=== PATIENT | female | born 1955 | race Caucasian/White ===

== ENCOUNTER 2016-04-11 11:11 | Outpatient (CLI) | payer MEDICAID | END 2016-04-11 11:12 | disposition home or self-care (01) | DX: I63.412 Cerebral infarction due to embolism of left middle cerebral artery (principal); T88.7XXA Unspecified adverse effect of drug or medicament, initial encounter; E55.9 Vitamin D deficiency, unspecified ==

== ENCOUNTER 2016-07-27 10:16 | Outpatient (CLI) | payer MEDICAID ==
[2016-07-27 18:04] LABS: INR 0.9 (0.8-1.2); PT - PROTHROMBIN TIME 10.6 secs (9.9-12.6)
[2016-07-27 18:06] LABS: BASOPHILS # (AUTO) 0.1 10^3/uL (0.0-0.1); BASOPHILS % (AUTO) 1.2 %; EOSINOPHILS # (AUTO) 0.2 10^3/uL (0.0-0.7); EOSINOPHILS % (AUTO) 2.4 %; HGB - HEMOGLOBIN 13.3 g/dL (12.0-16.0); LYMPHOCYTES # (AUTO) 1.4 10^3/uL (1.5-3.5); LYMPHOCYTES % (AUTO) 16.6 %; MEAN CORPUSCULAR HEMOGLOBIN 30.5 pg (27.0-31.0); MEAN CORPUSCULAR HGB CONC 33.2 g/dL (32.0-36.0); MEAN CORPUSCULAR VOLUME 91.9 fL (81.0-99.0); MEAN PLATELET VOLUME 8.9 fL (7.9-10.8); MONOCYTES # (AUTO) 0.7 10^3/uL (0.0-1.0); NEUTROPHILS # (AUTO) 6.2 10^3/uL (1.5-6.6); NEUTROPHILS % (AUTO) 71.8 %; NUCLEATED RED BLOOD CELLS AUTO 0.2 /100WBC; RED BLOOD COUNT 4.35 10^6/uL (4.20-5.40); RED CELL DISTRIBUTION WIDTH 13.5 % (12.0-15.0); UNCORRECTED WHITE BLOOD COUNT 8.6 x10^3/uL; WHITE BLOOD COUNT 8.6 x10^3/uL (4.8-10.8)
[2016-07-27 18:28] LABS: ALBUMIN/GLOBULIN RATIO 1.4 (1.0-2.2); BILIRUBIN,TOTAL 0.7 mg/dL (0.2-1.0); CALCIUM 9.2 mg/dL (8.5-10.3); CREATININE 0.6 mg/dL (0.4-1.0); POTASSIUM 3.9 mmol/L (3.5-5.0); TOTAL PROTEIN 7.1 g/dL (6.7-8.2)
[2016-07-27 18:29] LABS: CHOL/HDL RATIO 3.4 (<4.4); CHOLESTEROL 227 mg/dL; HDL CHOLESTEROL 67 mg/dL; LDL/HDL RATIO 1.9 (<4.4); TRIGLYCERIDES 165 mg/dL; VLDL CHOLESTEROL 33 mg/dL
== END 2016-07-27 10:17 | disposition home or self-care (01) ==
LOC: LAB.F 10:16
PROVIDERS: ATTEND Internal Medicine
DX: Z93.3 Colostomy status (principal)
CPT/HCPCS: 36415; 80053; 80061; 85025; 85610

== ENCOUNTER 2017-10-01 08:41 | Outpatient (CLI) | payer MEDICAID ==
[2017-10-01 11:47] LABS: HGB - HEMOGLOBIN 13.7 g/dL (12.0-16.0); MEAN CORPUSCULAR HEMOGLOBIN 27.5 pg (27.0-31.0); MEAN CORPUSCULAR HGB CONC 32.8 g/dL (32.0-36.0); MEAN CORPUSCULAR VOLUME 83.7 fL (81.0-99.0); MEAN PLATELET VOLUME 8.9 fL (7.9-10.8); RED BLOOD COUNT 4.99 10^6/uL (4.20-5.40); RED CELL DISTRIBUTION WIDTH 15.1 % (12.0-15.0); WHITE BLOOD COUNT 10.4 x10^3/uL (4.8-10.8)
[2017-10-01 11:57] LABS: ALBUMIN 4.5 g/dL (3.2-5.5); ALBUMIN/GLOBULIN RATIO 1.2 (1.0-2.2); BILIRUBIN,TOTAL 0.9 mg/dL (0.2-1.0); CALCIUM 9.4 mg/dL (8.5-10.3); CREATININE 0.7 mg/dL (0.4-1.0); TOTAL PROTEIN 8.4 g/dL (6.7-8.2)
[2017-10-02 13:58] LABS: HEPATITIS C ANTIBODY NON-REACTIVE (NON-REACTIVE)
== END 2017-10-01 08:42 | disposition home or self-care (01) ==
LOC: LAB.F 08:41
PROVIDERS: ATTEND Internal Medicine
DX: Z98.890 Other specified postprocedural states (principal); Z90.49 Acquired absence of other specified parts of digestive tract; R10.9 Unspecified abdominal pain; Z11.59 Encounter for screening for other viral diseases
CPT/HCPCS: 36415; 80053; 85027; 86803

== ENCOUNTER 2018-09-04 11:37 | Observation (INO) | payer MEDICAID ==
--- NOTE | 2018-09-04 12:09 | CT Report ---
Reason: aphasia and right weakness this morning Procedure Date: 09/04/2018 Accession Number: [id number] / [id number] Procedure: CT - Head W/O Stroke Protocol CPT Code: FULL RESULT: EXAM: CT HEAD EXAM DATE: 09/04/2018 11:52 AM. CLINICAL HISTORY: Aphasia and right weakness this morning. COMPARISON: HEAD W/O 10/18/2015 4:45 PM. TECHNIQUE: Multiaxial CT images were obtained from the foramen magnum to the vertex. Reformats: Sagittal and coronal. IV contrast: None. In accordance with CT protocol optimization, one or more of the following dose reduction techniques were utilized for this exam: automated exposure control, adjustment of mA and/or KV based on patient size, or use of iterative reconstructive technique. FINDINGS: Parenchyma: Left temporal lobe encephalomalacia from interval infarct. Diffuse chronic microangiopathic white matter changes are evident. Extraaxial Spaces: Normal for age. No subdural or epidural collections identified. Ventricles: Asymmetric dilatation of left lateral ventricle due to left temporal lobe encephalomalacia. No ventricular effacement. Sinuses and orbits: Imaged paranasal sinuses, orbits, and mastoids show no significant abnormality. Bones: No evidence of fracture or calvarial defect. Other: None. IMPRESSION: 1. No evidence for intracranial hemorrhage or large recent infarct. 2. Left temporal lobe encephalomalacia from interval infarct since 10/18/2015. 3. Generalized age-related cortical atrophic changes. Consider MRI as a more sensitive modality for acute and acute on chronic infarcts. [facility] The critical test notification system was initiated by Dr. Dilshad Guardado at 11:58 AM on 09/04/2018. The above critical test findings were discussed with Brandt Mcmahon by Dr. Dilshad Guardado at 12:01 PM on 09/04/2018.
[2018-09-04] MEDS ORDERED: SODIUM CHLORIDE 0.9% 1,000 ML IV ONE ×2 (12:34→14:44)
[2018-09-04] MEDS ORDERED: IOVERSOL 320 100 ML VIAL IVP ONE (12:37)
[2018-09-04 12:54] LABS: BILIRUBIN,URINE NEGATIVE (NEGATIVE); CLARITY,URINE CLEAR (CLEAR); GLUCOSE, URINE (UA) NEGATIVE (NEGATIVE); KETONES,URINE (UA) NEGATIVE (NEGATIVE); LEUKOCYTE ESTERASE, URINE NEGATIVE (NEGATIVE); NITRITE,URINE NEGATIVE (NEGATIVE); OCCULT BLOOD,URINE TRACE-INTA (NEGATIVE); PROTEIN,URINE NEGATIVE (NEGATIVE); UROBILINOGEN,URINE 0.2 (NORMAL) E.U./dL (NORMAL)
--- NOTE | 2018-09-04 12:54 | ED Physician Documentation ---
PD HPI FOCAL NEURO - Stated complaint Stated Complaint: STROKE SYMPTOMS - Chief complaint Chief Complaint: Neuro - History obtained from History obtained from: Patient, Friend - History of Present Illness Timing - onset: Today (about 8:30 am (4 hours ago).) Timing - duration: Hours Timing - details: Abrupt onset, Still present (improving now in the ER.) Severity of deficit: Moderate Weakness: Arm, Leg, Right, Other (also trouble speaking words/sentences significantly.) Associated symptoms: No: Headache, Nausea / vomiting Contributing factors: positive: Anticoagulated (Plavix). negative: Vascular dz, Atrial fibrillation Baseline status: positive: A&OX3, ambulatory, indep (Her baseline prior to today is some mild weakness and balance problems with the right leg and arm as well as occasional word aphasia from her prior stroke in 2016. Her symptoms today were similar to the prior stroke symptoms but significantly worse than her baseline. She had been feeling well otherwise without any recent dehydration cold or flu symptoms nausea vomiting or head cold stuff.), Cane Similar symptoms before: Diagnosis (Similar symptoms with CVA 2016 but had improved to just mild baseline symptoms currently.) Recently seen: Not recently seen Review of Systems Constitutional: denies: Fever, Chills Nose: denies: Rhinorrhea / runny nose, Congestion Throat: denies: Sore throat Cardiac: denies: Chest pain / pressure, Palpitations Respiratory: denies: Cough GI: denies: Nausea, Vomiting, Diarrhea, Bloody / black stool : denies: Dysuria, Frequency Neurologic: reports: Focal weakness (right arm and leg), Difficulty speaking. denies: Generalized weakness Endocrine: denies: Weight loss Immunocompromised: denies: Immunocompromised PD PAST MEDICAL HISTORY - Past Medical History Cardiovascular: None Respiratory: None Neuro: CVA Endocrine/Autoimmune: None GI: None, Diverticulitis : None HEENT: None Psych: None Musculoskeletal: None Derm: None - Past Surgical History Past Surgical History: Yes General: Bowel surgery /CALL OR CONTACT CENTRE OPERATOR: Hysterectomy HEENT: Tonsil/Adenoidectomy - Present Medications Home Medications: Ambulatory Orders Medication Instructions Recorded Confirmed Aspirin [Adult Low Dose Aspirin EC] 81 mg PO DAILY #30 tablet. 10/19/15 Atorvastatin [Lipitor] 40 mg PO QPM #30 tablet 10/19/15 Clopidogrel [Plavix] 75 mg PO DAILY #30 tablet 09/13/16 Nicotine 14 mg Patch [Nicoderm] 1 patch TOP DAILY #30 patch 10/19/15 - Allergies Allergies/Adverse Reactions: Allergies Allergy/AdvReac Type Severity Reaction Status Date / Time ibuprofen AdvReac Unknown Verified 09/04/18 13:42 - Social History Does the pt smoke?: No Smoking Status: Never smoker Does the pt drink ETOH?: Yes Does the pt have substance abuse?: No - Immunizations Immunizations: TDAP >10years/unknown PD ED PE NORMAL - Vitals Vital signs reviewed: Yes - General General: Alert and oriented X 3 (Having difficulties with expression and can only say partial sentences. She is able to answer yes no well so I asked more pointed questions initially.), No acute distress, Well developed/nourished - HEENT HEENT: Pharynx benign - Neck Neck: Supple, no meningeal sign, No adenopathy - Cardiac Cardiac: RRR, No murmur - Respiratory Respiratory: Clear bilaterally - Abdomen Abdomen: Soft, Non tender - Back Back: No CVA TTP - Derm Derm: Normal color, Warm and dry - Extremities Extremities: No deformity, No tenderness to palpate, No edema, No calf tenderness / cord - Neuro Neuro: Alert and oriented X 3. 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, Normal speech Eye Opening: Spontaneous Motor: Obeys Commands Verbal: Oriented GCS Score: 15 NIHSS - Level of Consciousness Level of consciousness: (0) Alert, Keenly responsive LOC Questions: (0) Answers both Q's correct LOC Commands: (0) Performs both correctly - Gaze Best Gaze: (0) Normal - Visual Visual: (0) No loss - Facial Palsy Facial Palsy: (1) Minor paralysis - Motor Arms (both separate) Motor Arm (right): (1) Drift Motor Arm (left): (0) No drift - Motor Legs (both separate) Motor Leg (right): (1) Drift Motor Leg (left): (0) No drift - Limb Ataxia Limb Ataxia: (0) Absent - Sensory Sensory: (0) Normal - Best Language Best Language: (2) Severe aphasia - Dysarthria Dysarthria: (0) Normal - Extinction and Inattention (formally neg Extinction and inattention: (0) No abnormality - Total Score/Results Total Score/Result: 5 Results - Vitals Vitals: Vital Signs - 24 hr 0709/04/18 09/04/18 12:33 12:42 13:44 Temperature 36.5 C 36.7 C Heart Rate 89 71 88 Respiratory 30 H 20 24 Rate Blood Pressure 152/96 H 177/110 H 167/104 H O2 Saturation 98 99 99 09/04/18 13:58 Temperature Heart Rate 96 Respiratory 17 Rate Blood Pressure 153/111 H O2 Saturation 99 Oxygen O2 Source Room air - Labs Labs: Laboratory Tests 09/04/18 09/04/18 09/04/18 12:50 13:20 13:20 WBC 16.5 H RBC 5.08 Hgb 14.7 Hct 45.6 MCV 89.8 MCH 28.9 MCHC 32.2 RDW 13.7 Plt Count 302 MPV 9.8 Neut # (Auto) 14.4 H Lymph # (Auto) 1.2 L [place] # (Auto) 0.7 Eos # (Auto) 0.0 Baso # (Auto) 0.1 Absolute Nucleated RBC 0.00 Nucleated RBC % 0.0 PT INR APTT Sodium 138 Potassium 3.6 Chloride 104 Carbon Dioxide 22 Anion Gap 12.0 BUN 10 Creatinine 0.5 Estimated GFR (MDRD) 125 Glucose 98 Calcium 9.2 Magnesium 1.9 Total Bilirubin 0.7 AST 18 ALT 16 Alkaline Phosphatase 62 Total Protein 7.5 Albumin 4.1 Globulin 3.4 Albumin/Globulin Ratio 1.2 Lipase 26 Urine Color YELLOW Urine Clarity CLEAR Urine pH 7.0 Ur Specific [place] <=1.005 Urine Protein NEGATIVE Urine Glucose (UA) NEGATIVE Urine Ketones NEGATIVE Urine Occult Blood TRACE-INTA Urine Nitrite NEGATIVE Urine Bilirubin NEGATIVE Urine Urobilinogen 0.2 (NORMAL) Ur Leukocyte Esterase NEGATIVE Ur Microscopic Review NOT INDICATED 09/04/18 13:20 WBC RBC Hgb Hct MCV MCH MCHC RDW Plt Count MPV Neut # (Auto) Lymph # (Auto) [place] # (Auto) Eos # (Auto) Baso # (Auto) Absolute Nucleated RBC Nucleated RBC % PT 13.4 H INR 1.2 APTT 22.9 L Sodium Potassium Chloride Carbon Dioxide Anion Gap BUN Creatinine Estimated GFR (MDRD) Glucose Calcium Magnesium Total Bilirubin AST ALT Alkaline Phosphatase Total Protein Albumin Globulin Albumin/Globulin Ratio Lipase Urine Color Urine Clarity Urine pH Ur Specific [place] Urine Protein Urine Glucose (UA) Urine Ketones Urine Occult Blood Urine Nitrite Urine Bilirubin Urine Urobilinogen Ur Leukocyte Esterase Ur Microscopic Review - Rads (name of study) head CT Radiology: Prelim report reviewed, Discussed with rads (prior CVA; no acute findings), See rad report head/neck angio Radiology: Prelim report reviewed, Discussed with rads (There is stenosis at the M1 level of the left MCA. He did not compared to prior studies. He said there is some flow showing distally so reconstituting or having a trickle flow. Some tight stenoses up higher as well.), EMP read contemporaneously (I looked at the MRI results from 2016 and it talked about a similar stenotic lesion around that level making it sound like a chronic finding.), See rad report PD MEDICAL DECISION MAKING - ED course Complexity details: re-evaluated patient (She is having improving symptoms while here but not quite to baseline. Unclear whether she had a flow-limiting condition that caused exacerbation of symptoms of her prior MCA stroke. This compared to a new extension. On current testing there is no acute intervention per [facility] neurology. Suggest further evaluation for extension of her prior stroke versus other metabolic or vascular problems that exacerbated her prior infarct area.), considered differential, d/w patient, d/w gis consultant ([facility] neurology regarding stroke care who said there would be no lytic or medication interventions based on the timeframe, improving symptoms, Plavix prescription. He denies any endovascular intervention based on probably no significant change on the left MCA stenosis compared to prior MRI and her resolving symptoms. Suggested adding aspirin daily for a month.) Departure - Departure Disposition: ED Place in Observation Clinical Impression: Expressive aphasia, Right sided weakness, Status post cerebrovascular accident Condition: Stable
--- NOTE | 2018-09-04 13:07 | CT Report ---
Reason: aphasia and right weakness this morning Procedure Date: 09/04/2018 Accession Number: [id number] / [id number] Procedure: CT - ANGIO HEAD W/WO CPT Code: FULL RESULT: EXAM: CT ANGIOGRAM HEAD. EXAM DATE: 09/04/2018 12:10 PM CLINICAL HISTORY: Right side weakness. Aphasia. History of previous bilateral cerebral infarcts. COMPARISON: No prior CTA of the head. TECHNIQUE: CT Angiogram: Using a multidetector scanner, high-resolution axial images were acquired from the skull base through vertex following rapid infusion of intravenous contrast. Reformats: Multiplanar MIP reformats were reconstructed. Nascet criteria used for stenosis measurement. IV Contrast: 80 mL Optiray 320. In accordance with CT protocol optimization, one or more of the following dose reduction techniques were utilized for this exam: automated exposure control, adjustment of mA and/or KV based on patient size, or use of iterative reconstructive technique. FINDINGS: Multifocal age-indeterminate proximal left MCA arterial occlusive disease. The left MCA M1 segment may be duplicated and at the origins of these segments, there appears to be severe focal luminal stenosis versus occlusion. Additional severe stenosis versus occlusion of the nondominant superior proximal left MCA trunk. There is a third order peripheral branch of the dominant inferior proximal MCA trunk that appears occluded. These findings of proximal arterial occlusive disease of the left middle cerebral artery are age-indeterminate and may be from recent or remote thromboembolic disease. No other evidence for intracranial large artery flow-limiting stenosis or occlusion. Prominent chronic atherosclerosis of the distal ICA segments at the skull base. No evidence for an aneurysm or vertebrobasilar insufficiency. IMPRESSION: Multifocal/multisegment age-indeterminate arterial occlusive disease of proximal left MCA branches. This may be from age-indeterminate thromboembolic disease. These findings do not preclude the possibility of a new or small ischemic infarct for which brain MRI is more sensitive. The call report notification system was initiated by Dr. Ottoniel Motta at 12:43 PM on 09/04/2018. The above call report findings were discussed with Brandt Mcmahon by Dr. Ottoniel Motta at 12:51 PM on 09/04/2018. [facility]
--- NOTE | 2018-09-04 13:11 | CT Report ---
Reason: aphasia and right weakness this morning Procedure Date: 09/04/2018 Accession Number: [id number] / [id number] Procedure: CT - ANGIO NECK W CPT Code: FULL RESULT: EXAM: CT ANGIOGRAM NECK EXAM DATE: 09/04/2018 12:10 PM. CLINICAL HISTORY: Aphasia and right weakness this morning. History of previous bilateral cerebral infarcts. COMPARISON: No prior neck CTA. TECHNIQUE: Routine axial helical imaging was performed from the skull base through the aortic arch. Reconstructions: Routine multiplanar 3D MIP reconstructions. IV Contrast: Optiray 320 80ML. Evaluation of arterial stenosis is based on a NASCET method of measurement. In accordance with CT protocol optimization, one or more of the following dose reduction techniques were utilized for this exam: automated exposure control, adjustment of mA and/or KV based on patient size, or use of iterative reconstructive technique. FINDINGS: No flow-limiting stenosis of the proximal left subclavian artery adjacent to which there is focal atherosclerotic calcification of the aortic arch contiguous with the anterior aspect of the left subclavian artery origin. Patent origins of the left common carotid artery and innominate artery. The proximal right subclavian artery and distal innominate are obscured by beam hardening streak artifact. Incomplete visualization of the proximal right common carotid artery also obscured by streak artifact. Atherosclerosis with partially calcified plaque at the right cervical carotid bifurcation. The associated luminal stenosis appears mild and does not appear hemodynamically significant. Mild atherosclerosis of the left cervical carotid bifurcation is also present, but there is no evidence for acute abnormality or flow-limiting stenosis. Nonvisualization of the proximal aspect of the left vertebral artery V1 segment secondary to motion artifact in the low neck/upper chest. In the mid and upper neck where the left vertebral artery can be visualized, the appearance is unremarkable. Streak artifact obscures the origin of the right cervical vertebral artery. Where visualized more distally in the neck, this vessel shows no acute abnormality or flow-limiting stenosis. No evidence for intracranial or vertebrobasilar insufficiency. Intracranially, there appears to be severe near occlusive stenosis at the origin of the left MCA. This is also associated with mild origin stenosis of the left ADEEL A1 segment. There appear to be two dominant artery branches arising at the expected location of the left M1 origin. The more inferior of these is dominant. A third order left MCA branch arising from this proximally dominant trunk appears to be markedly attenuated or occluded which may represent additional downstream arterial occlusive disease potentially from thromboembolus. The more superior branch artery arising at the expected location of the left M1 origin which is severely stenotic or occluded at its origin reconstitutes within about 3-4 mm, but then about 12 mm from this shows an additional approximately 4 mm long segment of severe stenosis/near occlusion, distal to which the vessel then again reconstitutes more distally. Probable infundibulum at the origin of the left posterior communicating artery. Well-developed patent right posterior communicating artery. No evidence for acute intracranial or vertebrobasilar insufficiency. Moderate to marked atherosclerotic calcifications of the cavernous and paraclinoid ICA segments. No other evidence of acute or chronic large artery occlusive disease intracranially. IMPRESSION: 1. Multifocal age-indeterminate arterial occlusive disease and stenosis of multiple proximal left MCA segments including artery branches as they arise from the left supraclinoid ICA. 2. Limited evaluation of the vertebral and carotid arteries in the low neck. 3. As far as visualized, the cervical vertebral and carotid arteries are grossly patent without demonstrated focal flow-limiting stenosis. These findings do not preclude the possibility of small or acute ischemic infarct for which a brain MRI is more sensitive. [facility] The call report notification system was initiated by Dr. Ottoniel Motta at 12:43 PM on 09/04/2018. The above call report findings were discussed with Brandt Mcmahon by Dr. Ottoniel Motta at 12:51 PM on 09/04/2018.
[2018-09-04 13:31] LABS: BASOPHILS # (AUTO) 0.1 10^3/uL (0.0-0.1); BASOPHILS % (AUTO) 0.5 %; EOSINOPHILS % (AUTO) 0.2 %; HGB - HEMOGLOBIN 14.7 g/dL (12.0-16.0); LYMPHOCYTES # (AUTO) 1.2 10^3/uL (1.5-3.5); MEAN CORPUSCULAR HEMOGLOBIN 28.9 pg (27.0-31.0); MEAN CORPUSCULAR HGB CONC 32.2 g/dL (32.0-36.0); MEAN CORPUSCULAR VOLUME 89.8 fL (81.0-99.0); MEAN PLATELET VOLUME 9.8 fL (7.9-10.8); MONOCYTES # (AUTO) 0.7 10^3/uL (0.0-1.0); NEUTROPHILS # (AUTO) 14.4 10^3/uL (1.5-6.6); NEUTROPHILS % (AUTO) 87.7 %; PLT - PLATELET COUNT 302 10^3/uL (130-450); RED BLOOD COUNT 5.08 10^6/uL (4.20-5.40); RED CELL DISTRIBUTION WIDTH 13.7 % (12.0-15.0); WHITE BLOOD COUNT 16.5 x10^3/uL (4.8-10.8)
[2018-09-04 13:39] LABS: INR 1.2 (0.8-1.2); PT - PROTHROMBIN TIME 13.4 secs (9.9-12.6)
[2018-09-04 13:45] LABS: ALBUMIN 4.1 g/dL (3.2-5.5); ALBUMIN/GLOBULIN RATIO 1.2 (1.0-2.2); BILIRUBIN,TOTAL 0.7 mg/dL (0.2-1.0); CALCIUM 9.2 mg/dL (8.5-10.3); CREATININE 0.5 mg/dL (0.4-1.0); MAGNESIUM 1.9 mg/dL (1.7-2.8); TOTAL PROTEIN 7.5 g/dL (6.7-8.2)
[2018-09-04 13:46] LABS: PARTIAL THROMBOPLASTIN TIME 22.9 secs (24.9-33.3)
[2018-09-04] MEDS ORDERED: ASPIRIN CHEW 81 MG TABLET PO STA (13:56)
[2018-09-04] MEDS ORDERED: LORazepam 2 MG/ML VIAL IVP STA (14:44)
[2018-09-04] MEDS ORDERED: diphenhydrAMINE INJ 50 MG/ML VIAL IVP STA (14:48)
[2018-09-04] MEDS ORDERED: SODIUM CHLORIDE FLUSH 0.9% 10 ML SYRINGE IVP PRN (15:03)
[2018-09-04] MEDS ORDERED: ONDANSETRON 4 MG/2 ML VIAL IVP PRN (15:03)
[2018-09-04] MEDS ORDERED: CLOPIDOGREL 75 MG TABLET PO STA (15:06)
--- NOTE | 2018-09-04 15:24 | HISTORY & PHYSICAL EXAMINATION ---
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 Her symptoms today were similar to the prior stroke symptoms but significantly worse than her baseline. Now all her weakness, speech status returns on her baseline, facial droop is resolved, she has no more acute focal neurological deficits now " nothing I can feel is abnormal." CT of head reveals no evidence for intracranial hemorrhage or large recent infarct, left termporal lobe encephalomalacia from interval infarct since 2016. CTA of head reveals multiplefocal/multisegment age-indeterminate arterial occlusive disease of proximal left MCA branches. This may be from age- indeterminate thromboembolic disease. [place] neurologist was consulted by ER provider for regarding stroke care. The neurologist stated there would be no lytic or medication interventions based on the timeframe, improving symptoms, Plavix prescription. Also neurologist did not recommend any endovascular intervention based on image study which reveals no significant change on the left MCA stenosis compared to prior MRI plus pt's resolved symptoms, but suggested adding aspirin daily for a month, followup neurologist. pt denies fever, chill, cough, shortness of breath, chest pain, headache, abdominal, nausea, vomiting, dysuria, hematouria, vision change, " nothing I can feel is abnormal." In Lab test on ER, Pt had elevated WBC, UA analysis reveals normal. Pt is afebrile. Pt had elevated BP at 153/111. pt initially decline to stay hospital. I reported to Dr. Dean this condition, then Dr. Guzman told pt change her mind and want to stay in the hospital. pt is admitted in observation unit for TIA. History - Past Medical History Cardiovascular: reports: None Respiratory: reports: None Neuro: reports: CVA Endocrine/Autoimmune: reports: None GI: reports: None, Diverticulitis : reports: None HEENT: reports: None Psych: reports: None Musculoskeletal: reports: None Derm: reports: None MRSA Hx?: Yes - Past Surgical History General: reports: Bowel surgery /INCIDENT RESPONSE CONSULTANT: reports: Hysterectomy HEENT: reports: Tonsil/Adenoidectomy - Family & Social History Family History Comment/Other: Pt is living at [facility] with her roommate. she is not working and not much else is known. Social History Notes: for tobacco use, pt current smoke every day, less than 10 cigarettes perday. For alcohol, occasional. she denies drug use. Meds/Allgy - Home Medications Home Medications: Ambulatory Orders Medication Instructions Recorded Confirmed Aspirin [Adult Low Dose Aspirin EC] 81 mg PO DAILY #30 tablet. 10/19/15 Atorvastatin [Lipitor] 40 mg PO QPM #30 tablet 10/19/15 Clopidogrel [Plavix] 75 mg PO DAILY #30 tablet 10/19/15 Nicotine 14 mg Patch [Nicoderm] 1 patch TOP DAILY #30 patch 10/19/15 - Allergies Allergies/Adverse Reactions: Allergies Allergy/AdvReac Type Severity Reaction Status Date / Time ibuprofen AdvReac Unknown Verified 09/04/18 13:42 Review of Systems - Constitutional Constitutional: denies: Fatigue, Fever, Chills, Malaise, Weakness, Poor appetite, Diaphoresis, Night sweats - Eyes Eyes: denies: Pain, Irritation, Amaurosis, Blurred vision, Spots in vision, Field loss, Vision loss, Dipolpia - Ears, Nose & Throat Ears, Nose & Throat: denies: Ear pain, Hearing loss, Hearing aids, Tinnitus, Vertigo, Nasal pain, Nasal discharge, Nosebleeds, Nasal obstruction, Nasal congestion, Dentures, Sore throat, Hoarseness, Mouth lesions, Bleeding gums - Cardiovascular Cariovascular: denies: Irregular heart rate, Palpitations, Chest pain, Edema, L ightheadedness, Syncope, Exertional dyspnea, Decr. exercise tolerance - Respiratory Respiratory: denies: Cough, Sputum production, Wheezing, Snoring, Hemoptysis, Orthopnea, SOB at rest, SOB with exertion, Apnea, Stridor, Pleuritic pain - Gastrointestinal Gastrointestinal: denies: Abdominal pain, Abdominal distention, Constipation, Diarrhea, Change in bowel habits, Rectal bleeding, Black stools, Bloody stools, Nausea, Vomiting, Coffee grounds emesis, Reflux/heartburn - Genitourinary Genitourinary: denies: Dysuria, Frequency, Urgency, Hematuria, Incontinence, Flank pain, Nocturia, Urethral discharge - Musculoskeletal Musculoskeletal: denies: Muscle pain, Back pain, Muscle aches, Stiffness, Limited range of motion, Muscle weakness, Gout, Joint pain - Integumentary Integumentary: denies: Rash, Pruritis, Lesions, Dryness, Lumps, Acne, Pigment changes, Nail changes - Neurological Neurological: reports: Focal weakness, Pre-existing deficit, Slurred speech. d enies: General weakness, Headache, Dizziness, Numbness, Memory problems, Abnormal gait, Seizures, Incoordination - Psychiatric Psychiatric: denies: Depression, Anxiety, Suicidal, Delusions, Hallucinations, Homicidal - Endocrine Endocrine: denies: Polyuria, Polydypsia, Polyphagia, Intolerance to cold - Hematologic/Lymphatic Hematologic/Lymphatic: denies: Anemia, Bruising, Petechiae, Blood clots, Lymphadenopathy, Bleeding tendencies Prior Level of Functionality: independent Exam - Vital Signs Reviewed Vital Signs: Yes Vital Signs: Vital Signs x48h Temp Pulse Resp BP Pulse Ox 09/04/18 13:58 96 17 153/111 H 99 09/04/18 13:44 36.7 C 88 24 167/104 H 99 09/04/18 12:42 71 20 177/110 H 99 09/04/18 12:33 36.5 C 89 30 H 152/96 H 98 - Physical Exam General Appearance: positive: No acute distress, Alert. negative: Lethargic Eyes Bilateral: positive: Normal inspection, PERRL, No lid inflammation, Conjunctivae nml ENT: positive: ENT inspection nml, Pharynx nml, No signs of dehydration. negative: Purulent nasal drainage, Pharyngeal erythema, Oral lesions Neck: positive: Nml inspection, Thyroid nml, No JVD, Trachea midline. negative: Thyromegaly, Lymphadenopathy (R), Lymphadenopathy (L), Stiff neck, Swelling/bruising, Tracheal deviation Respiratory: positive: Chest non-tender, No respiratory distress, Breath sounds nml. negative: Wheezes, Rales, Rhonchi Cardiovascular: positive: Regular rate & rhythm, No murmur, No gallop. negative: Irregularly irregular, Extrasystoles, Tachycardia, Bradycardia, JVD present, Systolic murmur, Diastolic murmur Peripheral Pulses: positive: 2+ Abdomen: positive: Non-tender, No organomegaly, Nml bowel sounds, No distention. negative: Tenderness, Guarding, Rebound Back: positive: Nml inspection. negative: CVA tenderness (R), CVA tenderness (L) Skin: positive: Color nml, No rash, Warm, Dry. negative: Cyanosis, Diaphoresis, Pallor Extremities: positive: Non-tender, Nml appearance. negative: Calf tenderness, Joint swelling, Freda's sign/cords Neurologic/Psychiatric: positive: Oriented x3, Sensation nml, Weakness, Slurred/abnml speech. negative: Motor nml, Sensory loss, Facial droop Sepsis Event Note (H) - Evaluation Current Stage of Sepsis: Ruled out Conclusion/Plan - Problem List (1) TIA (transient ischemic attack) Conclusion/Plan: pt report all her transient focal neurologist deficits including right facial droop, worsening right side weakness, worsening speech were resolved. CTA of brain reveals multiplefocal/multisegment age-indeterminate arterial occlusive disease of proximal left MCA branches. Neurologist in [place] was consulted by ER provider, suggest add Aspirin for one month to see pt's response, then follow neurologist, plus home Plavix for pt, no further endovascular intervention for pt now. Aspirin 325 mg daily, plus Plavix 75 mg daily. EKG reveals is SR, no afib ECHO ordered check lipid panel reconcile pt's lipitor advise pt quit tobacco smoking tele and vital monitor PT/OT order, pt has hx of Stroke. 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 reconcile home Plavix and add Aspirin control pt's blood pressure. PT/OT and nurse support (3) Ileostomy in place Conclusion/Plan: stable, nurse support (4) HTN (hypertension) Conclusion/Plan: pt has elevated BP at ER, but pt has no home BP meds. order hydralazine PRN continue vital monitor (5) Lymphocytosis Conclusion/Plan: pt has elevated WBC to 16. UA is negative. unknown etiology. it can be pt's distress response from TIA. continue lab monitor, CXR is pending. - Lab Results Fish Bones: 09/04/18 13:20 09/04/18 13:20 Core Measures - Anticipated LOS I expect patient to be DC'd or transferred within 96 hours.: Yes - DVT/VTE - Prophylaxis VTE/DVT Device ordered at admit?: Yes VTE/DVT Prophylaxis med ordered at admit?: Yes
[2018-09-04] MEDS ORDERED: ACETAMINOPHEN 325 MG TABLET PO PRN (15:45)
[2018-09-04] MEDS ORDERED: hydrALAZINE INJ 20 MG/ML VIAL IVP PRN (16:16)
[2018-09-04] MEDS: SODIUM CHLORIDE FLUSH 0.9% 10 ML SYRINGE IVP SCH (16:21)
--- NOTE | 2018-09-04 16:53 | XRAY Report ---
Reason: SOB Procedure Date: 09/04/2018 Accession Number: [id number] / [id number] Procedure: XR - Chest 1 View X-Ray CPT Code: 87359 FULL RESULT: EXAM: CHEST RADIOGRAPHY EXAM DATE: 09/04/2018 04:36 PM. CLINICAL HISTORY: Shortness of breath. COMPARISON: CHEST 1 VIEW 10/18/2015 9:07 PM. TECHNIQUE: 1 view. FINDINGS: Lungs/Pleura: No focal opacities evident. No pleural effusion. No pneumothorax. Mediastinum: Within exam limitations, the cardiomediastinal contour is normal. Other: None. IMPRESSION: Normal single view chest. RADIA
[2018-09-04] MEDS: FAMOTIDINE 20 MG TABLET PO SCH (20:06)
[2018-09-04] MEDS ORDERED: ATORVASTATIN 40 MG TABLET PO SCH (21:00)
--- NOTE | 2018-09-04 23:57 | MRI Report ---
Reason: TIA Procedure Date: 09/04/2018 Accession Number: [id number] / [id number] Procedure: MRI - Brain W/O CPT Code: FULL RESULT: EXAM: MRI BRAIN WITHOUT CONTRAST EXAM DATE: 09/04/2018 09:41 PM. CLINICAL HISTORY: TIA. COMPARISON: BRAIN W/O 10/19/2015 8:21 AM NECK ANGIO 09/04/2018 12:02 PM. TECHNIQUE: Multiplanar, multisequence T1-weighted and fluid-sensitive MR sequences of the brain were performed. Sequences optimized for routine evaluation. Other: None. IV Contrast: None. FINDINGS: Parenchyma/Dura: No evidence of acute infarct. There are small remote right frontal, left frontal, and left parietal peripheral infarcts. There are several areas of increased T2 signal involving the white matter of the cerebral hemispheres. Ventricles/Cisterns: Mild dilatation of lateral ventricles. No mass-effect. No midline shift. No abnormal extra-axial fluid collection or hemorrhage. Orbits: Symmetric and unremarkable. Vasculature: Increased T2 flair signal involving left MCA branches suggestive of slow flow. Sinuses: No acute appearing sinus disease. Bones: No focal pathologic appearing marrow signal changes. Other: None. IMPRESSION: 1. No evidence of acute infarct. 2. Remote bilateral frontal and left parietal infarcts. 3. Severe left MCA stenosis. RADIA
[2018-09-05] MEDS: SODIUM CHLORIDE FLUSH 0.9% 10 ML SYRINGE IVP SCH ×2 (00:36→09:14)
[2018-09-05 05:20] LABS: BASOPHILS # (AUTO) 0.1 10^3/uL (0.0-0.1); BASOPHILS % (AUTO) 0.7 %; EOSINOPHILS # (AUTO) 0.1 10^3/uL (0.0-0.7); LYMPHOCYTES # (AUTO) 1.7 10^3/uL (1.5-3.5); LYMPHOCYTES % (AUTO) 17.4 %; MEAN CORPUSCULAR HEMOGLOBIN 29.6 pg (27.0-31.0); MEAN CORPUSCULAR HGB CONC 32.1 g/dL (32.0-36.0); MEAN CORPUSCULAR VOLUME 92.3 fL (81.0-99.0); MEAN PLATELET VOLUME 10.1 fL (7.9-10.8); MONOCYTES # (AUTO) 0.8 10^3/uL (0.0-1.0); NEUTROPHILS # (AUTO) 7.2 10^3/uL (1.5-6.6); NEUTROPHILS % (AUTO) 72.4 %; PLT - PLATELET COUNT 269 10^3/uL (130-450); RED BLOOD COUNT 4.39 10^6/uL (4.20-5.40)
[2018-09-05 05:25] LABS: CALCIUM 8.9 mg/dL (8.5-10.3); CREATININE 0.5 mg/dL (0.4-1.0)
[2018-09-05 05:34] LABS: CHOLESTEROL 162 mg/dL; HDL CHOLESTEROL 41 mg/dL; LDL CHOLESTEROL,CALCULATED 98 mg/dL; LDL/HDL RATIO 2.4 (<4.4); VLDL CHOLESTEROL 23 mg/dL
[2018-09-05] MEDS ORDERED: ASPIRIN 325 MG TABLET PO SCH (08:00)
[2018-09-05] MEDS ORDERED: NICOTINE 14 MG PATCH TOP SCH (09:00)
[2018-09-05] MEDS ORDERED: ENOXAPARIN 40 MG/0.4 ML SYRINGE SUBQ SCH (09:00)
[2018-09-05] MEDS ORDERED: CLOPIDOGREL 75 MG TABLET PO SCH (09:00)
[2018-09-05] MEDS ORDERED: POLYETHYLENE GLYCOL 3350 17 GM PACKET PO SCH (09:00)
[2018-09-05] MEDS: FAMOTIDINE 20 MG TABLET PO SCH (09:13)
--- NOTE | 2018-09-05 09:56 | Discharge Plan ---
Discharge Plan Problem Reviewed?: Yes Disposition: Home, Self Care Condition: Good Prescriptions: Niacin 250 mg PO DAILY #30 tablet Diet: Cardiac Activity Restrictions: Activity as Tolerated Shower Restrictions: No Assistance Devices: Walker Weight Bearing: Full Weight Instruction Topics: Clopidogrel Bisulfate Oral tablet, Aspirin ASA oral tablets Health Concerns: TIA (transient ischemic attack) Left MCA (middle cerebral artery) stenosis (narrowing) Word finding difficulties Plan of Treatment: Continue on Plavix and add Niacin daily Change positions slowly to prevent dizziness Please follow up with your PCP for a referral to be evaluated for the carotid artery stenosis to see if surgical intervention would be helpful in your case Care Goals: Avoid hospital stays Prevent stroke Improve symptoms Referral for possible surgical intervention for your carotid artery stenosis Assessment: Patient expressed understanding of her most recent results, including that her head MRI was negative for a stroke Additional Instructions or Follow Up instructions: A physical therapy evaluation is pending No Smoking: If you smoke, Please STOP! Call for help.
--- NOTE | 2018-09-05 10:18 | DISCHARGE SUMMARY ---
Discharge Summary Admit Date: 09/04/18 Discharge Date: 09/05/18 Discharging Provider: SUSANNE Butts Primary Care Provider: Kasey Zhang Code Status: Do Not Attempt Resuscitation Condition at Discharge: Good Discharge Disposition: 01 Home, Self Care - DIAGNOSES Admission Diagnoses: TIA (transient ischemic attack) History of CVA (cerebrovascular accident) Ileostomy in place HTN (hypertension) Lymphocytosis Discharge Diagnoses with Status of Each Condition: TIA (transient ischemic attack)- new on this admission, symptoms now resolved, stable, continue on Niacin with having an allergy to statins History of CVA (cerebrovascular accident)- History of bilateral frontal and left parietal strokes Ileostomy in place- chronic,stable HTN (hypertension)- chronic, stable Lymphocytosis- resolved - HPI History of Present Illness: HPI per Shubham Nagy SUPERVISOR ANODIZING: Cindi Costello is a 62-year old female with a past medical history of CVA with mild right sided in 2016 and remaining of right side mild weakness plus mild difficult to pickup words to speak, 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 Her symptoms today were similar to the prior stroke symptoms but significantly worse than her baseline. Now all her weakness, speech status returns on her baseline, facial droop is resolved, she has no more acute focal neurological deficits now " nothing I can feel is abnormal." CT of head reveals no evidence for intracranial hemorrhage or large recent infarct, left termporal lobe encephalomalacia from interval infarct since 2016. CTA of head reveals multiplefocal/multisegment age-indeterminate arterial occlusive disease of proximal left MCA branches. This may be from age- indeterminate thromboembolic disease. [place] neurologist was consulted by ER provider for regarding stroke care. The neurologist stated there would be no lytic or medication interventions based on the timeframe, improving symptoms, Plavix prescription. Also neurologist did not recommend any endovascular intervention based on image study which reveals no significant change on the left MCA stenosis compared to prior MRI plus pt's resolved symptoms, but suggested adding aspirin daily for a month, followup neurologist. pt denies fever, chill, cough, shortness of breath, chest pain, headache, abdominal, nausea, vomiting, dysuria, hematouria, vision change, " nothing I can feel is abnormal." In Lab test on ER, Pt had elevated WBC, UA analysis reveals normal. Pt is afebrile. Pt had elevated BP at 153/111. pt initially decline to stay hospital. I reported to Dr. Dean this condition, then Dr. Guzman told pt change her mind and want to stay in the hospital. pt is admitted in observation unit for TIA. - HOSPITAL COURSE Hospital Course: The patient had a resolution of her presenting symptoms and was discharged in stable condition. - ALLERGIES Allergies/Adverse Reactions: Allergies Allergy/AdvReac Type Severity Reaction Status Date / Time atorvastatin AdvReac Severe muscle Verified 09/04/18 17:45 issue ibuprofen AdvReac Unknown Verified 09/04/18 13:42 - MEDICATIONS Home Medications: Ambulatory Orders Medication Instructions Recorded Confirmed Clopidogrel [Plavix] 75 mg PO DAILY #30 tablet 10/19/15 09/04/18 Niacin 250 mg PO DAILY #30 tablet 09/05/18 - PHYSICAL EXAM AT DISCHARGE General Appearance: positive: No acute distress, Alert Eyes Bilateral: positive: PERRL ENT: positive: Pharynx nml, No signs of dehydration Neck: positive: Thyroid nml, No JVD Respiratory: positive: Chest non-tender, No respiratory distress, Breath sounds nml Cardiovascular: positive: No gallop, Systolic murmur, Decreased pulse(s) Peripheral Pulses: positive: 2+ Abdomen: positive: Non-tender, Nml bowel sounds Back: positive: Nml inspection Skin: positive: No rash, Warm, Dry Extremities: positive: Non-tender, Full ROM, Nml appearance, Pedal edema Neurologic/Psychiatric: positive: Oriented x3, CN's nml (2-12), Motor nml, Weakness, Depressed mood/affect Reflexes: Bicep (R): 3+, Bicep (L): 3+ - LABS Result Diagrams: 09/05/18 04:40 09/05/18 04:40 - DIAGNOSTIC IMAGING Diagnostic Imaging Results: Final report reviewed Diagnostic Imaging Results Comments: EXAM: CT HEAD EXAM DATE: 09/04/2018 11:52 AM IMPRESSION: 1. No evidence for intracranial hemorrhage or large recent infarct. 2. Left temporal lobe encephalomalacia from interval infarct since 10/18/2015. 3. Generalized age-related cortical atrophic changes. EXAM: CT ANGIOGRAM HEAD EXAM DATE: 09/04/2018 12:10 PM IMPRESSION: Multifocal/multisegment age-indeterminate arterial occlusive disease of proximal left MCA branches. This may be from age-indeterminate thromboemboli c disease. These findings do not preclude the possibility of a new or small ischemic infarct for which brain MRI is more sensitive. EXAM: CT ANGIOGRAM NECK EXAM DATE: 09/04/2018 12:10 PM. IMPRESSION: 1. Multifocal age-indeterminate arterial occlusive disease and stenosis of multiple proximal left MCA segments including artery branches as they arise from the left supraclinoid ICA. 2. Limited evaluation of the vertebral and carotid arteries in the low neck. 3. As far as visualized, the cervical vertebral and carotid arteries are grossly patent without demonstrated focal flow-limiting stenosis. These findings do not preclude the possibility of small or acute ischemic infarct for which a brain MRI is more sensitive. EXAM: CHEST RADIOGRAPHY EXAM DATE: 09/04/2018 04:36 PM IMPRESSION: Normal single view chest. EXAM: MRI BRAIN WITHOUT CONTRAST EXAM DATE: 09/04/2018 09:41 PM. IMPRESSION: 1. No evidence of acute infarct. 2. Remote bilateral frontal and left parietal infarcts. 3. Severe left MCA stenosis. - SEPSIS Current Stage of Sepsis: Ruled out - FOLLOW UP Follow Up: Disposition: Home Prescriptions: Niacin 250 mg PO DAILY #30 tablet Instruction Topics: Clopidogrel Bisulfate Oral tablet, Aspirin ASA oral tablets Health Concerns: TIA (transient ischemic attack), Left MCA (middle cerebral artery) stenosis (narrowing), Word finding difficulties Plan of Treatment: Continue on Plavix and add Niacin daily, Change positions slowly to prevent dizziness Please follow up with your PCP for a referral to be evaluated for the carotid artery stenosis to see if surgical intervention would be helpful in your case Care Goals: Avoid hospital stays Prevent stroke Improve symptoms Referral for possible surgical intervention for your carotid artery stenosis Assessment: Patient expressed understanding of her most recent results, including that her head MRI was negative for a stroke - TIME SPENT Time Spent in Discharge (Minutes): 55
[2018-09-05 12:54] VITALS: BP 151/98
[2018-09-06] MEDS ORDERED: CLOPIDOGREL 75 MG TABLET PO SCH (09:00)
== END 2018-09-05 11:15 | disposition home or self-care (01) ==
LOC: ED 11:37 → MS2 15:03
PROVIDERS: ADMIT Nurse Practitioner Gerontology; ATTEND Nurse Practitioner
DX: G45.9 Transient cerebral ischemic attack, unspecified (principal); I69.320 Aphasia following cerebral infarction; I69.351 Hemiplegia and hemiparesis following cerebral infarction affecting right dominant side; I10 Essential (primary) hypertension; D72.820 Lymphocytosis (symptomatic); I66.02 Occlusion and stenosis of left middle cerebral artery; Z93.2 Ileostomy status; Z87.891 Personal history of nicotine dependence; Z87.19 Personal history of other diseases of the digestive system; Z90.49 Acquired absence of other specified parts of digestive tract
CPT/HCPCS: 36415; 70450; 70496; 70498; 70551; 71045; 80048; 80053; 80061; 81003; 83690; 83735; 85025; 85610; 85730; 93005; 93306; 96361; 96374; 96375; 97161; 99284; 99285; A9270; G0378; J1200; J2060; Q9967; 81001; 83721

== ENCOUNTER 2019-09-30 15:52 | Emergency (ER) | payer MEDICAID ==
[2019-09-30] MEDS ORDERED: HYDROmorphone 1 MG/ML CARPUJECT IM STA (16:36)
--- NOTE | 2019-09-30 16:37 | ED Physician Documentation ---
History of Present Illness - Stated complaint Stated Complaint: RT ARM INJ - Chief complaint Chief Complaint: Ext Problem - Additonal information Additional information: 63-year-old female presents to the emergency department for acute right wrist pain and injury. She reports that she was walking this afternoon with her cane descending the steps when she tripped falling forward on outstretched hands. This was a mechanical fall. She denies syncope. She had no loss of consciousness did not strike her head or neck. She does take Plavix every day. 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 She is right-handed. She has obvious swelling deformity and ecchymosis over the mid distal wrist. Review of Systems Constitutional: denies: Fever, Chills Nose: denies: Rhinorrhea / runny nose, Congestion, Epistaxis Throat: denies: Dental pain / toothache, Oral lesions / sores, Sore throat Cardiac: denies: Chest pain / pressure, Palpitations Respiratory: denies: Dyspnea, Cough GI: denies: Abdominal Pain, Abdominal Swelling, Nausea : denies: Dysuria, Frequency Skin: denies: Rash, Lesions Musculoskeletal: reports: Extremity pain, Extremity swelling. denies: Neck pain Neurologic: reports: Focal weakness (base line right leg). denies: Generalized weakness, Near syncope, Syncope, Seizure, Headache, Head injury, LOC PD PAST MEDICAL HISTORY - Past Medical History Past Medical History: Yes Cardiovascular: None Respiratory: None Neuro: CVA Endocrine/Autoimmune: None GI: Diverticulitis RESIDENTIAL FEE APPRAISER: None : None HEENT: None Psych: None Musculoskeletal: None Derm: None - Past Surgical History Past Surgical History: Yes General: Bowel surgery /RESIDENTIAL FEE APPRAISER: Hysterectomy HEENT: Tonsil/Adenoidectomy - Present Medications Home Medications: Ambulatory Orders Medication Instructions Recorded Confirmed Clopidogrel [Plavix] 75 mg PO DAILY #30 tablet 10/19/15 09/04/18 Niacin 250 mg PO DAILY #30 tablet 09/05/18 Hydrocodone/Acetaminophen [Strandquist 1 each PO TID PRN #15 tablet 09/30/19 5-325 Tablet] - Allergies Allergies/Adverse Reactions: Allergies Allergy/AdvReac Type Severity Reaction Status Date / Time atorvastatin AdvReac Severe muscle Verified 09/04/18 17:45 issue ibuprofen AdvReac Unknown Verified 09/04/18 13:42 - Social History Does the pt smoke?: No Smoking Status: Former smoker Does the pt drink ETOH?: No Does the pt have substance abuse?: Yes Substance Use and Type: Marijuana - Immunizations Immunizations are current?: Yes Immunizations: TDAP >10years/unknown PD ED PE EXPANDED - General General: Alert, No acute distress, In Pain - Neck Neck: Supple w/out meningeal sx, Other (full ROM in all planes). No: No tenderness, Soft tissue TTP, Bony TTP - Cardiac Cardiac: Regular Rate, Regular Rhythm, Radial strong equal (bilaterally), Femoral strong equal, Pedal strong equal, Cap refill < 2 sec - Respiratory Respiratory: Clear to ausultation ariana. No: Distress, Labored - Extremities Extremities: Deformity, Tenderness (Swelling ecchymosis with mild deformity right mid distal wrist. Limited range of motion secondary to pain. Brisk cap refill distally. 2+ radial ulnar pulse.), Right elbow (2 sonometer hematoma distal to the lateral olecranon of the right elbow. Normal flexion extension of elbow against resistance.) Results - Vitals Vitals: Vital Signs - 24 hr 09/30/19 09/30/19 09/30/19 15:59 16:16 19:03 Temperature 36.4 C L 36.8 C 36.3 C L Heart Rate 114 H 109 H 108 H Respiratory 18 18 18 Rate Blood Pressure 150/104 H 151/107 H 134/85 H O2 Saturation 96 96 95 Oxygen O2 Source Room air - Rads (name of study) right wrist Radiology: Final report received elbow right Radiology: Final report received (No fractures or dislocations no suspicious bony lesions) PD MEDICAL DECISION MAKING - ED course Complexity details: reviewed results, considered differential, d/w patient, d/w senior environmental consultant (Dr. Tavares ([facility])) ED course: 63-year-old female presents to the emergency room for evaluation of acute right wrist pain after a FOOSH fall this afternoon. X-ray does show that she is got a comminuted displaced intra-articular fracture of the right radius. There is some angulation and I have consulted on the phone with Dr. Tavares on-call for orthopedics Departure - Departure Disposition: 01 Home, Self Care Clinical Impression: Closed right radial fracture Qualifiers: Encounter type: initial encounter Radius location: distal Fracture morphology: other intra-articular Qualified Code(s): S52.571A - Other intraarticular fracture of lower end of right radius, initial encounter for closed fracture Condition: Stable Record reviewed to determine appropriate education?: Yes Instructions: ED Fx Forearm Radius Ulna No Redu Requ Follow-Up: [facility] [Provider Group] - Within 1 week Prescriptions: Hydrocodone/Acetaminophen [Strandquist 5-325 Tablet] 1 each PO TID PRN #15 tablet PRN Reason: Pain Comments: Cindi the x-ray does show that you have broken your distal right radius. We have placed this in a temporary splint. It should remain clean and dry. I do want you to call the orthopedics department tomorrow for a follow-up. I have prescribed Vicodin for pain. Use this sparingly as it may make you dizzy and more prone to falls. If at any point you have fevers, hand or finger numbness or tingling or feel that the splint is too tight please return to the emergency department for a repeat evaluation
[2019-09-30] MEDS ORDERED: ONDANSETRON ODT 4 MG TABLET TL STA (17:21)
--- NOTE | 2019-09-30 17:53 | XRAY Report ---
PROCEDURE: Wrist 3 View RT INDICATIONS: injury TECHNIQUE: 3 views of the wrist were acquired. COMPARISON: None available FINDINGS: Bones: There is a comminuted, impacted fracture of the distal radius, with dorsal angulation. There is intra-articular involvement seen. No radiocarpal dislocation can be seen. No associated fracture of the distal ulna can be seen. Focal degenerative change is seen involving the carpometacarpal joint, with milder degenerative husain es seen elsewhere. Soft tissues: Soft tissue swelling is seen. IMPRESSION: There is an impacted, comminuted, intra-articular fracture of the distal radius, with dorsal angulati on. Reviewed by: Mehul Radford MD on 09/30/2019 4:51 PM MIKEY Approved by: Mehul Radford MD on 09/30/2019 4:51 PM MIKEY Station ID: [id number]
--- NOTE | 2019-09-30 17:54 | XRAY Report ---
PROCEDURE: Elbow 2 View RT INDICATIONS: fall; contusion TECHNIQUE: 2 views of the elbow were acquired. COMPARISON: Correlation is made with the accompanying wrist plain films. FINDINGS: Bones: No fractures or dislocations. No suspicious bony lesions. Soft tissues: No large elbow joint effusion. No suspicious soft tissue calcifications. IMPRESSION: No significant plain film abnormality is seen. Reviewed by: Mehul Radford MD on 09/30/2019 4:52 PM AKDT Approved by: Mehul Radford MD on 09/30/2019 4:52 PM AKDT Station ID: [id number]
[2019-09-30 19:03] VITALS: BP 134/85
== END 2019-09-30 19:29 | disposition home or self-care (01) ==
LOC: ED 15:52
DX: S52.571A Other intraarticular fracture of lower end of right radius, initial encounter for closed fracture (principal); W10.9XXA Fall (on) (from) unspecified stairs and steps, initial encounter; Y93.01 Activity, walking, marching and hiking
CPT/HCPCS: 73070; 73110; 96372; 99283; 99284; J1170; Q0162

== ENCOUNTER 2019-10-09 15:57 | Outpatient (CLI) | payer MEDICAID ==
--- NOTE | 2019-10-09 16:00 | XRAY Report ---
PROCEDURE: Wrist 3 View RT INDICATIONS: RIGHT WRIST FRACTURE TECHNIQUE: 3 views of the wrist were acquired. COMPARISON: 09/30/2019 FINDINGS: Bones: There is an air splint along the medial aspect of the lateral right wrist. Moderately displace d and comminuted distal radius fracture with extension to the articular surface is redemonstrated. Th ere is dorsal displacement to a similar degree. No suspicious bony lesions. Soft tissues: No suspicious soft tissue calcifications. IMPRESSION: 1. No change in position to distal radial fracture post splint placement. Reviewed by: Flor Thomas MD on 10/09/2019 3:59 PM PDT Approved by: Flor Thomas MD on 10/09/2019 3:59 PM PDT Station ID: [id number]
== END 2019-10-09 23:59 | disposition home or self-care (01) ==
LOC: DI.WCP 15:57
PROVIDERS: ATTEND Orthopaedic Surgery
DX: S52.501D Unspecified fracture of the lower end of right radius, subsequent encounter for closed fracture with routine healing (principal)

== ENCOUNTER 2019-11-14 15:44 | Outpatient (CLI) | payer MEDICAID ==
--- NOTE | 2019-11-14 15:46 | XRAY Report ---
PROCEDURE: Wrist 3 View RT INDICATIONS: COLLES FX OF R RADIUS TECHNIQUE: 3 views of the wrist were acquired. COMPARISON: 09/30/2019 FINDINGS: Bones: There is an old some healing at impacted distal radial shaft fracture site. Shortening of dist al radial shaft is seen. Alignment of right wrist is anatomic. No new fracture or dislocation. No michelle picious bony lesions. Scaphoid view: Scaphoid is grossly intact. Soft tissues: No suspicious soft tissue calcifications. IMPRESSION: Healing impacted distal radial fracture with anatomic wrist alignment. No fracture or dislocation. Reviewed by: Kt Hoskins MD on 11/14/2019 3:44 PM PDT Approved by: Kt Hoskins MD on 11/14/2019 3:44 PM PDT Station ID: [id number]
== END 2019-11-14 23:59 | disposition home or self-care (01) ==
LOC: DI.WCP 15:44
PROVIDERS: ATTEND Orthopaedic Surgery
DX: S52.531A Colles' fracture of right radius, initial encounter for closed fracture (principal)

== ENCOUNTER 2020-04-23 08:35 | Outpatient (CLI) | payer MEDICARE, MEDICAID ==
[2020-04-23 15:15] LABS: BASOPHILS # (AUTO) 0.1 10^3/uL (0.0-0.1); BASOPHILS % (AUTO) 0.7 %; EOSINOPHILS # (AUTO) 0.3 10^3/uL (0.0-0.7); EOSINOPHILS % (AUTO) 2.1 %; HCT - HEMATOCRIT 46.7 % (37.0-47.0); HGB - HEMOGLOBIN 14.6 g/dL (12.0-16.0); LYMPHOCYTES # (AUTO) 2.1 10^3/uL (1.5-3.5); LYMPHOCYTES % (AUTO) 17.8 %; MEAN CORPUSCULAR HEMOGLOBIN 29.7 pg (27.0-31.0); MEAN CORPUSCULAR HGB CONC 31.3 g/dL (32.0-36.0); MEAN CORPUSCULAR VOLUME 94.9 fL (81.0-99.0); MEAN PLATELET VOLUME 9.9 fL (7.9-10.8); MONOCYTES # (AUTO) 0.7 10^3/uL (0.0-1.0); MONOCYTES % (AUTO) 5.7 %; NEUTROPHILS # (AUTO) 8.6 10^3/uL (1.5-6.6); NEUTROPHILS % (AUTO) 73.3 %; PLT - PLATELET COUNT 438 10^3/uL (130-450); RED BLOOD COUNT 4.92 10^6/uL (4.20-5.40); RED CELL DISTRIBUTION WIDTH 13.4 % (12.0-15.0); WHITE BLOOD COUNT 11.7 x10^3/uL (4.8-10.8)
[2020-04-23 15:53] LABS: ALBUMIN 4.4 g/dL (3.2-5.5); ALBUMIN/GLOBULIN RATIO 1.3 (1.0-2.2); ALKALINE PHOSPHATASE 63 IU/L (42-121); ALT ALANINE AMINOTRANSFERASE 23 IU/L (10-60); AST ASPARTATE AMINOTRANSFERASE 23 IU/L (10-42); BILIRUBIN,TOTAL 0.8 mg/dL (0.2-1.0); BUN - BLOOD UREA NITROGEN 11 mg/dL (6-20); CALCIUM 9.2 mg/dL (8.5-10.3); CARBON DIOXIDE - CO2 27 mmol/L (21-32); CHLORIDE 101 mmol/L (101-111); CHOL/HDL RATIO 4.2 (<4.4); CHOLESTEROL 222 mg/dL; CREATININE 0.6 mg/dL (0.4-1.0); GFR - MDRD 100 (>89); GLUCOSE 92 mg/dL (70-100); HDL CHOLESTEROL 53 mg/dL; LDL CHOLESTEROL,CALCULATED 130 mg/dL; LDL/HDL RATIO 2.5 (<4.4); POTASSIUM 3.7 mmol/L (3.5-5.0); SODIUM 139 mmol/L (135-145); TOTAL PROTEIN 7.8 g/dL (6.7-8.2); TRIGLYCERIDES 196 mg/dL; VLDL CHOLESTEROL 39 mg/dL
== END 2020-04-23 08:36 | disposition home or self-care (01) ==
LOC: LAB.S 08:35
PROVIDERS: ATTEND Nurse Practitioner Family
DX: I69.351 Hemiplegia and hemiparesis following cerebral infarction affecting right dominant side (principal); I69.30 Unspecified sequelae of cerebral infarction
CPT/HCPCS: 36415; 80053; 80061; 83721; 85025

== ENCOUNTER 2022-02-09 07:00 | Outpatient (CLI) | payer MEDICARE, MEDICAID ==
[2022-02-09 14:25] LABS: BASOPHILS # (AUTO) 0.1 10^3/uL (0.0-0.1); BASOPHILS % (AUTO) 0.8 %; EOSINOPHILS # (AUTO) 0.2 10^3/uL (0.0-0.7); EOSINOPHILS % (AUTO) 1.9 %; HGB - HEMOGLOBIN 14.4 g/dL (12.0-16.0); LYMPHOCYTES # (AUTO) 2.4 10^3/uL (1.5-3.5); LYMPHOCYTES % (AUTO) 24.3 %; MEAN CORPUSCULAR HEMOGLOBIN 29.5 pg (27.0-31.0); MEAN CORPUSCULAR VOLUME 92.2 fL (81.0-99.0); MEAN PLATELET VOLUME 10.2 fL (7.9-10.8); MONOCYTES # (AUTO) 0.6 10^3/uL (0.0-1.0); MONOCYTES % (AUTO) 6.3 %; NEUTROPHILS # (AUTO) 6.5 10^3/uL (1.5-6.6); NEUTROPHILS % (AUTO) 66.5 %; PLT - PLATELET COUNT 382 10^3/uL (130-450); RED BLOOD COUNT 4.88 10^6/uL (4.20-5.40); RED CELL DISTRIBUTION WIDTH 13.2 % (12.0-15.0); WHITE BLOOD COUNT 9.7 x10^3/uL (4.8-10.8)
[2022-02-09 15:16] LABS: ALBUMIN/GLOBULIN RATIO 1.1 (1.0-2.2); ALKALINE PHOSPHATASE 60 IU/L (42-121); ALT ALANINE AMINOTRANSFERASE 18 IU/L (10-60); AST ASPARTATE AMINOTRANSFERASE 22 IU/L (10-42); BILIRUBIN,TOTAL 0.5 mg/dL (0.2-1.0); BUN - BLOOD UREA NITROGEN 11 mg/dL (6-20); CALCIUM 9.5 mg/dL (8.5-10.3); CARBON DIOXIDE - CO2 26 mmol/L (21-32); CHLORIDE 105 mmol/L (101-111); CHOLESTEROL 203 mg/dL; CREATININE 0.5 mg/dL (0.4-1.0); GFR - MDRD 123 (>89); GLUCOSE 96 mg/dL (70-100); HDL CHOLESTEROL 51 mg/dL; LDL CHOLESTEROL,CALCULATED 127 mg/dL; LDL/HDL RATIO 2.5 (<4.4); POTASSIUM 4.3 mmol/L (3.5-5.0); SODIUM 140 mmol/L (135-145); TOTAL PROTEIN 7.5 g/dL (6.7-8.2); TRIGLYCERIDES 127 mg/dL; VLDL CHOLESTEROL 25 mg/dL
[2022-02-09 15:25] LABS: THYROID STIMULATING HORMONE 1.74 uIU/mL (0.34-5.60)
[2022-02-09 15:27] LABS: FREE T4 (FREE THYROXINE) 0.83 ng/dL (0.58-1.64)
== END 2022-02-09 23:59 | disposition home or self-care (01) ==
LOC: LAB.S 07:00
PROVIDERS: ATTEND Nurse Practitioner Family
DX: I69.351 Hemiplegia and hemiparesis following cerebral infarction affecting right dominant side (principal); D68.69 Other thrombophilia; E78.2 Mixed hyperlipidemia
CPT/HCPCS: 36415; 80053; 80061; 83721; 84439; 84443; 85025

== ENCOUNTER 2022-09-14 09:06 | Outpatient (CLI) | payer MEDICARE, MEDICAID ==
[2022-09-14 14:46] LABS: ALBUMIN 4.3 g/dL (3.2-5.5); ALBUMIN/GLOBULIN RATIO 1.4 (1.0-2.2); BILIRUBIN,TOTAL 0.5 mg/dL (0.2-1.0); CALCIUM 9.5 mg/dL (8.5-10.3); CREATININE 0.6 mg/dL (0.6-1.3); POTASSIUM 4.3 mmol/L (3.5-4.5); TOTAL PROTEIN 7.4 g/dL (6.4-8.9)
[2022-09-14 22:04] LABS: ESTIMATED AVERAGE GLUCOSE 103 mg/dL (70-100); HEMOGLOBIN A1c% 5.2 % (4.27-6.07)
== END 2022-09-14 09:07 | disposition home or self-care (01) ==
LOC: LAB.S 09:06
PROVIDERS: ATTEND Nurse Practitioner Family
DX: I10 Essential (primary) hypertension (principal)
CPT/HCPCS: 36415; 80053; 83036